=== PATIENT | male | born 1970 | race Caucasian/White ===

== ENCOUNTER 2016-10-06 06:15 | Day surgery (SDC) | payer OTHER ==
[~2016-10-06] VITALS: Ht 180.3 cm; Wt 91.5 kg
[~2016-10-06 06:15] MED LIST: LISI20TA3 PO; METF1000 PO; METO50TA11 PO
[2016-10-06 07:04] VITALS: BP 137/86; PULSE 58; RESP 18; TEMP 98; O2SAT 96
[2016-10-06] MEDS ORDERED: ATOR40TA16 PO (07:23)
[2016-10-06] MEDS ORDERED: ASPI1TAB69 PO (07:23)
[2016-10-06] MEDS ORDERED: NS 1000P @30 MLS/HR (KVO) IV SCH (07:30)
[2016-10-06] MEDS ORDERED: HEPARIN-NS/PF INJ 500 ML ONE (08:13)
[2016-10-06] MEDS ORDERED: MIDAZOLAM HCL 2 MG/2 ML VIAL ONE (08:13)
[2016-10-06] MEDS ORDERED: IOHEXOL 350 MG/ML 100 ML BTL (for Cath Lab) OTHER ONE (08:24)
[2016-10-06] MEDS ORDERED: SODIUM CHLORIDE 0.9% FLUSH 5 ML FLUSH IVF PRN (08:45)
[2016-10-06] MEDS ORDERED: ONDANSETRON HCL 4 MG/2 ML VIAL IV PRN (08:45)
[2016-10-06] MEDS ORDERED: ATROPINE SULFATE 1 MG/ML VIAL IV PRN (08:45)
[2016-10-06] MEDS ORDERED: SODIUM CHLOR 0.9% 250 ML INJ 250 ML IV PRN (08:45)
[2016-10-06] MEDS ORDERED: METOCLOPRAMIDE HCL 10 MG/2 ML VIAL IV PRN (08:45)
[2016-10-06] MEDS ORDERED: MISC INFORMATION XX ONE (08:45)
[2016-10-06] MEDS ORDERED: SODIUM CHLORIDE 0.9% FLUSH 5 ML FLUSH IVF SCH (09:00)
--- NOTE | 2016-10-06 11:02 | MA ---
cc: LUI QUINN MD DATE: 10/06/2016 The patient was prepped and draped in the usual fashion. A 6 sheath was inserted percutaneously into the right femoral artery. Coronary angiography was done with Andrez preformed catheters. RESULTS Aortic pressure is 102/60. Left ventriculography was not done. CORONARY ARTERIOGRAPHY The left main coronary was normal. The left anterior descending artery was essentially normal throughout its course. Left circumflex artery gave off a large first obtuse marginal and was essentially normal throughout its course. The left circumflex was a dominant system. Right coronary was small and nondominant. No significant lesions were seen. CONCLUSION Normal coronary arteries. At the end of the procedure the groin was sealed with Angio-Seal technique. Lui Quinn MD DLW/TLL /8:47 AM /10:38 AM
[2016-12-23] MEDS ORDERED: DAPA1TAB PO (14:15)
[2016-12-23] MEDS ORDERED: ATOR40TA16 PO (14:15)
== END 2016-10-06 12:00 | disposition home or self-care (01) ==
LOC: HDOC 06:15 → HDIC 06:17 → HDOC 12:00
PROVIDERS: ATTEND Internal Medicine
DX: R94.39 Abnormal result of other cardiovascular function study (principal)
CPT/HCPCS: 86850; 86900; 86901; 93454; C1760; C1769; C1893; G0269; J1644; J2250; J3010; Q9967